=== PATIENT | male | born 1935 | race Caucasian/White ===

== ENCOUNTER 2017-05-31 10:15 | Inpatient (IN) | payer MEDICARE, OTHER ==
[~2017-05-31] VITALS: Ht 157.5 cm; Wt 61.1 kg
[~2017-05-31 10:15] MED LIST: AMLO5TAB22 PO; ARIC5TAB PO; JANT1TAB PO; LEXA20TA PO; LORA-474 PO; POTA10IN2 PO; RAMI5CAP36 PO; SIMV20 PO; TAMS0.4C67 PO; TRAZ50TA4 PO; ULTR50TA PO; [UNRECOGNIZED DRUG - CODE]
[2017-05-31 10:20] VITALS: BP 142/93; PULSE 81; RESP 18; TEMP 98.6; O2SAT 99
--- NOTE | 2017-05-31 10:54 | PD ---
HPI Chief Complaint: Fall Time Seen by Provider: 10:46 Travel History International Travel<30 days: No Contact w/Intl Traveler<30days: No Traveled to known affect area: No History of Present Illness HPI Patient is a 82-year-old male presents emergency department from [facility] after a fall out of a wheelchair. He arrives with his and they're niece, his states that he is on hospice for a history of coronary artery disease, incident happened just prior to arrival. Patient has no complaints at this time. Has a small abrasion to left forehead as well as left elbow. PFSH Past Medical History Hx Anticoagulant Therapy: Yes (81 MG ASA; COUMADIN) Alzheimer's Disease: Yes Arthritis: Yes Asthma: No Autoimmune Disease: No Blood Disorders: No Anxiety: No Depression: Yes Heart Rhythm Problems: Yes (AICD) Cancer: No Cardiac Catheterization: Yes Cardiovascular Problems: Yes (BYPASS; STENTS; PACEMAKER) High Cholesterol: Yes Chemotherapy: No Chest Pain: Yes Congestive Heart Failure: No COPD: No Cerebrovascular Accident: Yes (TIAS) Coronary Artery Disease: Yes Diabetes: No Diminished Hearing: No Endocrine: No Gastrointestinal Disorders: Yes GERD: No Glaucoma: No Genitourinary: No Headaches: No Hepatitis: No Hiatal Hernia: No Hypertension: Yes Immune Disorder: No Implanted Vascular Access Dvce: Yes Kidney Stones: No Musculoskeletal: No Neurologic: Yes (MX TIA) Psychiatric: No Reproductive: No Respiratory: No Migraines: No Myocardial Infarction: Yes Radiation Therapy: No Renal Failure: No Seizures: Yes (convulsive disorder) Sickle Cell Disease: No Sleep Apnea: No Thyroid Disease: No Ulcer: No PNEUMOCCOCAL Vaccine (Year): 1 Past Surgical History Abdominal Surgery: Yes (HERNIA REPAIR 15 YEARS OLD, APENDECTOMY AT 8 ) AICD: Yes (PACER/DEFIB.) Appendectomy: Yes Arteriovenous Shunt: No Body Medical Devices: ACD- [employer] Cardiac Surgery: Yes (AVR, 5 BYPASSES IN 2001, AORTIC COW ) Cholecystectomy: Yes Coronary Artery Bypass Graft: Yes (5 bypass) Coronary Stent: Yes Ear Surgery: No Endocrine Surgery: No Eye Surgery: No Genitourinary Surgery: No Gynecologic Surgery: No Insulin Pump: No Joint Replacement: No Neurologic Surgery: No Pacemaker: Yes ([employer]) Thoracic Surgery: No Other Surgery: Yes Social History Alcohol Use: No Tobacco Use: No (QUIT 45 YEARS AGO) Substance Use: No Allergies-Medications (Allergen,Severity, Reaction): Coded Allergies: MRI PRECAUTION (Verified Allergy, Severe, 05/31/17) PACEMAKER DISCONNECTED Reported Meds & Prescriptions Reported Meds & Active Scripts Active Reported Cresemba (Isavuconazonium Sulfate) 186 Mg Cap Trazodone Hcl (Trazodone HCl) 50 Mg Tab Unknown Dose PO HS Aricept (Donepezil HCl) 5 Mg Tab 10 Mg PO HS Lexapro (Escitalopram Oxalate) 20 Mg Tab 20 Mg PO BID Amlodipine Besylate 5 mg (Amlodipine Besylate) 5 Mg Tab 1 Tab PO DAILY Ramipril 5 mg (Ramipril) 5 Mg Cap 1 Cap PO BID Ativan (Lorazepam) 1 Mg Tab 1 Mg PO BID Ultram (Tramadol HCl) 50 Mg Tab 50 Mg PO Q6HR PRN Flomax (Tamsulosin HCl) 0.4 Mg Cap 0.4 Mg PO DAILY Jantoven 1 mg (Warfarin Sodium) Warfarin Sodium 1 mg Tab 5 Mg PO HS Potassium Chloride 10 Meq Cap 10 Meq PO DAILY Zocor (Simvastatin) 20 Mg Tab 40 Mg PO HS Review of Systems Except as stated in HPI: all other systems reviewed are Neg Physical Exam Narrative GENERAL: Well-developed well-nourished, chronically ill elderly appearing male in no distress. SKIN: Focused skin assessment warm/dry. Small abrasions to left elbow as well as left forehead. No stewart signs no raccoons eyes. HEAD: Atraumatic. Normocephalic. EYES: Pupils equal and round. No scleral icterus. No injection or drainage. ENT: No nasal bleeding or discharge. Mucous membranes pink and moist. NECK: Trachea midline. No JVD. CARDIOVASCULAR: Regular rate and rhythm. No murmur appreciated. RESPIRATORY: No accessory muscle use. Clear to auscultation. Breath sounds equal bilaterally. GASTROINTESTINAL: Abdomen soft, non-tender, nondistended. Hepatic and splenic margins not palpable. MUSCULOSKELETAL: No obvious deformities. No clubbing. No cyanosis. No edema. NEUROLOGICAL: Awake and alert. No obvious cranial nerve deficits. Motor grossly within normal limits. Normal speech. 5 out of 5 strength in all 4 extremities, sensation normal in all 4 extremities. PSYCHIATRIC: Appropriate mood and affect; insight and judgment normal. Data Data Last Documented VS Vital Signs Date Time Temp Pulse Resp B/P (MAP) Pulse Ox O2 Delivery O2 Flow Rate FiO2 05/31/17 10:37 96 18 99 Room Air 05/31/17 10:20 98.6 142/93 (109) Orders Orders Ct Brain W/O Iv Contrast(Rout) (05/31/17 ) Ct Cerv Spine W/O Contrast (05/31/17 ) Consult Neurosurgery (05/31/17 ) (Hub Use Only)Inp Phy Cons/Ref (05/31/17 ) Oxycodone-Acetamin 5-325 Mg (Percocet (05/31/17 13:45) [place] J Collar (05/31/17 ) Electrocardiogram (05/31/17 13:35) Basic Metabolic Panel (Bmp) (05/31/17 13:35) Complete Blood Count With Diff (05/31/17 13:35) Magnesium (Mg) (05/31/17 13:35) Prothrombin Time / Inr (Pt) (05/31/17 13:35) Act Partial Throm Time (Ptt) (05/31/17 13:35) Chest, Single Ap (05/31/17 13:35) Ecg Monitoring (05/31/17 13:35) Iv Access Insert/Monitor (05/31/17 13:35) Oximetry (05/31/17 13:35) Oxygen Administration (05/31/17 13:35) Sodium Chloride 0.9% Flush (Ns Flush) (05/31/17 13:45) Admit Order (Ed Use Only) (05/31/17 ) ^ Medication Reconciliation (05/31/17 14:00) MDM Medical Decision Making Medical Screen Exam Complete: Yes Emergency Medical Condition: Yes Differential Diagnosis Closed head injury, neck injury, fall, Narrative Course Patient roomed emergency department, appears well in no obvious distress, c- collar precautions were maintained. Patient underwent CAT scanning of his head and his neck the latter of which did show an acute C2 dens fracture. Is minimally superiorly displaced. Patient again is neurologically intact. Basic labs were ordered as part of preop workup. Patient was discussed with Dr. Wiley has seen the patient and I said and on discussion between him the patient and the family about surgical versus nonsurgical options. The time being patient will be admitted for neurologic checks. Patient was discussed with hospitalist for the admission to Diagnosis Primary Impression: C2 cervical fracture Admitting Information Admitting Physician Requests: Observation Condition: Stable Doni Leonard MD May 31, 2017 10:53
--- NOTE | 2017-05-31 12:10 | RADRPT ---
EXAM DATE/TIME: 05/31/2017 11:36 [facility] COMPARISON: CT BRAIN W/O CONTRAST, April 30, 2016, 10:16. INDICATIONS : Trauma; fall. RADIATION DOSE: 56.35 CTDIvol (mGy) MEDICAL HISTORY : Cardiovascular disease. Hypertension. Seizures. SURGICAL HISTORY : CABG ENCOUNTER: Initial ACUITY: 1 day PAIN SCALE: 5/10 LOCATION: cranial TECHNIQUE: Multiple contiguous axial images were obtained of the head. Using automated exposure control and adj ustment of the mA and/or kV according to patient size, radiation dose was kept as low as reasonably a chievable to obtain optimal diagnostic quality images. DICOM format image data is available electro nically for review and comparison. FINDINGS: CEREBRUM: There is generalized cerebral atrophy. Ventricles are normal. There is periventricular white matter l ow attenuation. No evidence of midline shift, mass lesion, hemorrhage or acute infarction. No extra- axial fluid collections are seen. POSTERIOR FOSSA: The cerebellum and brainstem demonstrate no acute finding. The 4th ventricle is midline. The cerebe llopontine angle is unremarkable. EXTRACRANIAL: There is left frontal scalp soft tissue swelling/hematoma. SKULL: The calvaria is intact. No evidence of skull fracture. CONCLUSION: Left frontal scalp soft tissue swelling/hematoma. No associated fracture or acute intracranial abnorm ality is present. Javier Riley MD on May 31, 2017 at 12:07 Board Certified Radiologist. This report was verified electronically.
--- NOTE | 2017-05-31 12:15 | RADRPT ---
EXAM DATE/TIME: 05/31/2017 11:38 [facility] COMPARISON: No previous studies available for comparison. INDICATIONS : Trauma; fall RADIATION DOSE: 32.17 CTDIvol (mGy) MEDICAL HISTORY : Cardiovascular disease. Seizures. SURGICAL HISTORY : CABG ENCOUNTER: Initial ACUITY: 1 day PAIN SCALE: 6/10 LOCATION: Bilateral neck TECHNIQUE: Volumetric scanning of the cervical spine was performed. Multiplanar reconstructions in the sagittal, coronal and oblique axial planes were performed. Using automated exposure control and adjustment o f the mA and/or kV according to patient size, radiation dose was kept as low as reasonably achievable to obtain optimal diagnostic quality images. DICOM format image data is available electronically f or review and comparison. FINDINGS: There is 3 mm of anterolisthesis of C4 on C5 and 4 mm range listhesis of C5 on C6. The bones are unde rmineralized. A fracture is present through the base of the odontoid process with 2 mm of separation of the fracture fragments. The fracture does not appear to extend clearly through the posterior trixie x. There is decreased disc height at C5-C6 and C6-C7. Facet arthrosis is present at multiple levels. The visualized portions of the posterior fossa, paraspinous soft tissues, and upper lung zones demons trate no acute abnormality. CONCLUSION: 1. There is a minimally displaced fracture through the base of the odontoid process at C2. Fracture e nds are by approximately 2 mm anteriorly and the fracture does not clearly extend through t he posterior cortex. 2. There is grade one anterolisthesis of C4 on C5 and C5 on C6 with multilevel degenerative disc dise ase. Javier Riley MD on May 31, 2017 at 12:09 Board Certified Radiologist. This report was verified electronically.
[2017-05-31] MEDS ORDERED: SODIUM CHLORIDE 0.9% FLUSH 10 ML FLUSH IVF PRN (13:45)
[2017-05-31] MEDS ORDERED: oxyCODONE/ACETAMINOPHEN 5 MG/325 MG TAB PO ONE (13:45)
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
[2017-05-31] MEDS ORDERED: SENNOSIDES 8.6 MG TAB PO PRN (14:15)
[2017-05-31] MEDS ORDERED: NALOXONE HCL 0.4 MG/ML AMP IV PRN (14:15)
[2017-05-31] MEDS ORDERED: MAGNESIUM HYDROXIDE SUSP 30 ML CUP PO PRN (14:15)
[2017-05-31] MEDS ORDERED: BISACODYL 10 MG SUPP RECTAL PRN (14:15)
[2017-05-31] MEDS ORDERED: SODIUM CHLORIDE 0.9% FLUSH 10 ML FLUSH IV FLUSH PRN (14:15)
[2017-05-31] MEDS ORDERED: LACTULOSE SYRUP 20 GM/30 ML CUP PO PRN (14:15)
[2017-05-31] MEDS ORDERED: ONDANSETRON HCL 4 MG/2 ML VIAL IVP PRN (14:15)
[2017-05-31 14:34] VITALS: BP 159/93; PULSE 90; RESP 18; TEMP 98.3; O2SAT 100
--- NOTE | 2017-05-31 14:45 | RADRPT ---
EXAM DATE/TIME: 05/31/2017 14:01 [facility] COMPARISON: CHEST SINGLE AP, April 30, 2016, 10:32. INDICATIONS : Fell today. Chest pain. MEDICAL HISTORY : Dementia. SURGICAL HISTORY : Aortic valve replacement. ENCOUNTER: Initial ACUITY: 1 day PAIN SCORE: Non-responsive. LOCATION: Bilateral chest FINDINGS: Single AP view of the chest. Cardiac pacemaker again noted. Prosthetic cardiac valve again seen. Pers istent patchy opacity at the left lung base indicating scarring versus chronic lung disease. Mild per ipheral interstitial opacity noted in the right lung. No evidence of pleural effusion or pneumothorax . CONCLUSION: Chronic lung disease. Left greater than right. No acute findings. Augie Hamilton MD on May 31, 2017 at 14:42 Board Certified Radiologist. This report was verified electronically.
[2017-05-31 14:53] LABS: AUTOMATED NEUTROPHIL # 7.3 TH/MM3 (1.8-7.7); BASOPHIL # 0.1 TH/MM3 (0-0.2); BASOPHIL % 0.9 % (0.0-2.0); EOSINOPHIL # 0.1 TH/MM3 (0-0.4); EOSINOPHIL % 0.7 % (0.0-4.0); HEMATOCRIT 38.6 % (39.0-51.0); HEMO FLAGS DIFF FINAL; LYMPH % 14.6 % (9.0-44.0); LYMPHOCYTE # 1.4 TH/MM3 (1.0-4.8); MEAN CELL VOLUME 89.5 FL (80.0-100.0); MEAN CORPUSCULAR HEMOGLOBIN 30.3 PG (27.0-34.0); MEAN CORPUSCULAR HGB CONC 33.8 % (32.0-36.0); MONO % 5.2 % (0.0-8.0); NEUT % 78.6 % (16.0-70.0); PLATELET COUNT 189 TH/MM3 (150-450); RED BLOOD COUNT 4.31 MIL/MM3 (4.50-5.90); RED CELL DISTRIBUTION WIDTH 14.8 % (11.6-17.2); WHITE BLOOD COUNT 9.3 TH/MM3 (4.0-11.0)
[2017-05-31] MEDS: SODIUM CHLOR 0.9% 1000 ML INJ 1,000 ML IV SCH ×4 (14:56→23:38)
[2017-05-31 15:07] LABS: BICARBONATE 30.3 MEQ/L (21.0-32.0); MAGNESIUM 2.1 MG/DL (1.5-2.5); POTASSIUM 3.2 MEQ/L (3.5-5.1)
[2017-05-31 15:10] LABS: APTT (PATIENT) 30.8 SEC (24.3-30.1); PROTHROMBIN TIME - PATIENT 11.1 SEC (9.8-11.6)
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
[2017-05-31 17:00] VITALS: BP 151/63; PULSE 105; RESP 18; TEMP 97.9; O2SAT 100
[2017-05-31] MEDS ORDERED: POTASSIUM CHLOR 20 MEQ PREMIX 100 ML IV ONE (18:30)
[2017-05-31] MEDS ORDERED: POTASSIUM CHLORIDE 10 MEQ CONTROLLED RELEASE TAB PO ONE (18:30)
[2017-05-31 19:00] VITALS: BP 158/99; PULSE 91; RESP 20; TEMP 97.5; O2SAT 99
[2017-05-31] MEDS ORDERED: WARFARIN SOD 2.5 MG TAB PO SCH (20:00)
[2017-05-31] MEDS ORDERED: WARFARIN SOD 1 MG TAB PO SCH (21:00)
[2017-05-31] MEDS ORDERED: DONEPEZIL HCL 5 MG TAB PO SCH (21:00)
[2017-05-31] MEDS ORDERED: SIMVASTATIN PO SCH (21:00)
[2017-05-31] MEDS ORDERED: PRAVASTATIN SOD 80 MG TAB PO SCH (21:00)
[2017-05-31] MEDS: RAMIPRIL 5 MG CAP PO SCH (23:36)
[2017-05-31] MEDS: SODIUM CHLORIDE 0.9% FLUSH 10 ML FLUSH IV FLUSH SCH (23:36)
[2017-05-31] MEDS: LORazepam 1 MG TAB PO SCH (23:37)
[2017-05-31] MEDS: DOCUSATE SODIUM 50 MG/SENNA 8.6 MG TAB PO SCH (23:37)
[2017-05-31] MEDS: ESCITALOPRAM OXALATE 20 MG TAB PO SCH (23:37)
[2017-06-01] VITALS (7 sets, daily range): BP systolic 114–184; BP diastolic 67–114; PULSE 72–110; RESP 18–20; TEMP 97.2–98.2; O2SAT 95–100
[2017-06-01] MEDS: traMADol HCL 50 MG TAB PO PRN ×3 (06:49→17:57)
[2017-06-01] MEDS: POTASSIUM CHLORIDE 10 MEQ CONTROLLED RELEASE TAB PO SCH ×2 (09:00→09:11)
[2017-06-01] MEDS ORDERED: TAMSULOSIN HCL 0.4 MG CAP PO SCH (09:00)
[2017-06-01] MEDS: DOCUSATE SODIUM 50 MG/SENNA 8.6 MG TAB PO SCH ×2 (09:00→20:18)
[2017-06-01] MEDS ORDERED: amLODIPine BESYLATE 5 MG TAB PO SCH (09:00)
[2017-06-01] MEDS: ESCITALOPRAM OXALATE 20 MG TAB PO SCH (09:10)
[2017-06-01] MEDS: LORazepam 1 MG TAB PO SCH ×3 (09:10→20:17)
[2017-06-01] MEDS: RAMIPRIL 5 MG CAP PO SCH (09:10)
--- NOTE | 2017-06-01 09:31 | EKG ---
Date Performed: 05/31/2017 Time Performed: 14:23:19 PTAGE: 82 years EKG: ELECTRONIC VENTRICULAR PACEMAKER Compared to prior tracing no significant change ABNORMAL R HYTHM ECG PREVIOUS TRACING : 04/30/2016 10.09 DOCTOR: Sean Yancey Interpretating Date/Time 06/01/2017 09:29:57
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
[2017-06-01 12:18] LABS: PROTHROMBIN TIME - PATIENT 11.4 SEC (9.8-11.6)
[2017-06-01 12:39] LABS: ALKALINE PHOSPHATASE 81 U/L (45-117); ALT (GPT) 12 U/L (12-78); ANION GAP 13 MEQ/L (5-15); AST (GOT) 18 U/L (15-37); BLOOD UREA NITROGEN 9 MG/DL (7-18); CHLORIDE 102 MEQ/L (98-107); GLOMERULAR FILTRATION RATE 107 ML/MIN (>89); SODIUM (NA) 140 MEQ/L (136-145); TOTAL BILIRUBIN ADULT 0.8 MG/DL (0.2-1.0)
[2017-06-01 13:12] LABS: POTASSIUM 2.7 MEQ/L (3.5-5.1)
[2017-06-01] MEDS: SODIUM CHLORIDE 0.9% FLUSH 10 ML FLUSH IV FLUSH SCH ×2 (14:00→20:17)
[2017-06-01] MEDS ORDERED: WARFARIN SOD 5 MG TAB PO SCH (16:00)
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
[2017-06-01] MEDS: POTASSIUM CHLOR 20 MEQ PREMIX 100 ML IV SCH ×2 (17:57→20:29)
[2017-06-01] MEDS: ENALAPRILAT 2.5 MG/2 ML VIAL IV PUSH PRN ×2 (17:58→21:18)
[2017-06-01] MEDS: METHADONE HCL 10 MG TAB PO SCH (20:18)
[2017-06-02 00:40] VITALS: BP 188/112; PULSE 92; RESP 18; TEMP 97.9; O2SAT 98
[2017-06-02 04:35] VITALS: BP 167/103; PULSE 87; RESP 17; TEMP 98; O2SAT 99
[2017-06-02] MEDS: SODIUM CHLOR 0.9% 1000 ML INJ 1,000 ML IV SCH ×2 (07:00→17:00)
[2017-06-02 08:10] VITALS: BP 142/89; PULSE 84; RESP 18; TEMP 97.4; O2SAT 97
[2017-06-02 08:40] LABS: PROTHROMBIN TIME - PATIENT 10.9 SEC (9.8-11.6)
[2017-06-02] MEDS: POTASSIUM CHLORIDE 10 MEQ CONTROLLED RELEASE TAB PO SCH (08:51)
[2017-06-02] MEDS: QUEtiapine FUMARATE 25 MG TAB PO SCH (08:51)
[2017-06-02] MEDS: LORazepam 1 MG TAB PO SCH ×2 (08:51→21:00)
[2017-06-02] MEDS: DOCUSATE SODIUM 50 MG/SENNA 8.6 MG TAB PO SCH ×2 (09:00→21:00)
[2017-06-02] MEDS: SODIUM CHLORIDE 0.9% FLUSH 10 ML FLUSH IV FLUSH SCH ×2 (09:00→21:00)
[2017-06-02 10:54] LABS: C. DIFF EPI 027 PRESUMPTIVE NEGATIVE (NEGATIVE)
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
[2017-06-02 11:52] VITALS: BP 168/107; PULSE 83; RESP 18; TEMP 97.5; O2SAT 99
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
--- NOTE | 2017-06-02 14:10 | HHI.HCPN ---
Palliative care was consulted. It appears the family has elected hospice services upon DC. Palliative care will be available, please call if our services are needed. Thank you. . Evy Ball Jun 02, 2017 14:10
[2017-06-02 16:00] VITALS: BP 166/93; PULSE 93; RESP 16; TEMP 97.9; O2SAT 97
[2017-06-02] MEDS ORDERED: POTASSIUM CHLORIDE 25 MEQ EFFERVESCENT TAB PO ONE (16:15)
[2017-06-02] MEDS: ENALAPRILAT 2.5 MG/2 ML VIAL IV PUSH PRN (17:21)
[2017-06-02 19:22] LABS: BICARBONATE 25.8 MEQ/L (21.0-32.0); POTASSIUM 3.3 MEQ/L (3.5-5.1)
[2017-06-02 20:00] VITALS: BP 173/102; PULSE 87; RESP 18; TEMP 98.2; O2SAT 93
[2017-06-02] MEDS: METHADONE HCL 10 MG TAB PO SCH (21:00)
[2017-06-03] VITALS (9 sets, daily range): BP systolic 123–210; BP diastolic 72–110; PULSE 78–96; RESP 18–20; TEMP 97–98.1; O2SAT 94–99
[2017-06-03] MEDS: SODIUM CHLOR 0.9% 1000 ML INJ 1,000 ML IV SCH ×3 (06:03→14:35)
[2017-06-03] MEDS: SODIUM CHLORIDE 0.9% FLUSH 10 ML FLUSH IV FLUSH SCH ×2 (08:40→21:00)
[2017-06-03] MEDS: LORazepam 1 MG TAB PO SCH ×2 (08:40→21:48)
[2017-06-03] MEDS: DOCUSATE SODIUM 50 MG/SENNA 8.6 MG TAB PO SCH ×2 (08:41→21:48)
[2017-06-03] MEDS: POTASSIUM CHLORIDE 10 MEQ CONTROLLED RELEASE TAB PO SCH (08:41)
[2017-06-03] MEDS: QUEtiapine FUMARATE 25 MG TAB PO SCH (08:41)
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
[2017-06-03 13:06] LABS: INTERNATIONAL NORMALIZED RATIO 1.2 RATIO; PROTHROMBIN TIME - PATIENT 13.6 SEC (9.8-11.6)
[2017-06-03] MEDS: traMADol HCL 50 MG TAB PO PRN (14:34)
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
[2017-06-03] MEDS: ENALAPRILAT 2.5 MG/2 ML VIAL IV PUSH PRN (17:03)
[2017-06-03] MEDS: METHADONE HCL 10 MG TAB PO SCH (21:49)
[2017-06-03 22:09] LABS: AUTOMATED NEUTROPHIL # 7.6 TH/MM3 (1.8-7.7); BASOPHIL % 0.5 % (0.0-2.0); EOSINOPHIL # 0.2 TH/MM3 (0-0.4); EOSINOPHIL % 1.6 % (0.0-4.0); HEMATOCRIT 37.7 % (39.0-51.0); HEMO FLAGS DIFF FINAL; LYMPH % 15.4 % (9.0-44.0); LYMPHOCYTE # 1.5 TH/MM3 (1.0-4.8); MEAN CELL VOLUME 89.8 FL (80.0-100.0); MEAN CORPUSCULAR HEMOGLOBIN 29.7 PG (27.0-34.0); MEAN CORPUSCULAR HGB CONC 33.1 % (32.0-36.0); MONO % 6.9 % (0.0-8.0); NEUT % 75.6 % (16.0-70.0); PLATELET COUNT 200 TH/MM3 (150-450); RED CELL DISTRIBUTION WIDTH 14.7 % (11.6-17.2); WHITE BLOOD COUNT 10.1 TH/MM3 (4.0-11.0)
[2017-06-03 22:21] LABS: BICARBONATE 27.9 MEQ/L (21.0-32.0)
[2017-06-04] MEDS: ENALAPRILAT 2.5 MG/2 ML VIAL IV PUSH PRN (00:38)
[2017-06-04] MEDS: SODIUM CHLOR 0.9% 1000 ML INJ 1,000 ML IV SCH ×3 (02:00→18:07)
[2017-06-04 04:36] VITALS: BP 142/85; PULSE 81; RESP 18; TEMP 97.3; O2SAT 96
[2017-06-04 08:12] VITALS: O2SAT 92
[2017-06-04] MEDS: SODIUM CHLORIDE 0.9% FLUSH 10 ML FLUSH IV FLUSH SCH ×2 (09:00→21:00)
[2017-06-04] MEDS: QUEtiapine FUMARATE 25 MG TAB PO SCH (09:29)
[2017-06-04] MEDS: POTASSIUM CHLORIDE 10 MEQ CONTROLLED RELEASE TAB PO SCH (09:29)
[2017-06-04] MEDS: DOCUSATE SODIUM 50 MG/SENNA 8.6 MG TAB PO SCH ×2 (09:30→21:36)
[2017-06-04] MEDS: LORazepam 1 MG TAB PO SCH ×2 (09:30→21:36)
[2017-06-04 09:57] VITALS: BP 136/86; PULSE 84; RESP 17; TEMP 97.4; O2SAT 97
[2017-06-04 13:07] VITALS: BP 128/79; PULSE 87; RESP 16; TEMP 97.4; O2SAT 97
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
[2017-06-04 17:08] VITALS: BP 145/89; PULSE 80; RESP 16; TEMP 97.5; O2SAT 96
[2017-06-04 20:30] VITALS: BP 153/87; PULSE 88; RESP 18; TEMP 97.2; O2SAT 100
[2017-06-04] MEDS: METHADONE HCL 10 MG TAB PO SCH (21:36)
[2017-06-05] VITALS (8 sets, daily range): BP systolic 159–178; BP diastolic 88–104; PULSE 78–82; RESP 16–20; TEMP 97.4–99; O2SAT 95–100
[2017-06-05] MEDS ORDERED: LACTATED RINGER'S 1000 ML IV PRN (05:30)
[2017-06-05] MEDS ORDERED: CHLORHEXIDINE GLUCONATE 2 % 1 PACK (2 CLOTHS) TOPICAL PRN (05:30)
[2017-06-05] MEDS ORDERED: POVIDONE IODINE 5% (ANTISEPSIS KIT) 4 APPLICATIONS EACH NARE PRN (05:30)
[2017-06-05] MEDS ORDERED: SODIUM CHLORID 0.9% 500 ML IV PRN (05:30)
[2017-06-05] MEDS ORDERED: INSULIN HUMAN REGULAR 1,000 UNITS/10 ML VIAL SQ PRN (05:30)
[2017-06-05] MEDS ORDERED: METOPROLOL TARTRATE 25 MG TAB PO PRN (05:30)
[2017-06-05] MEDS: QUEtiapine FUMARATE 25 MG TAB PO SCH (09:00)
[2017-06-05] MEDS: POTASSIUM CHLORIDE 10 MEQ CONTROLLED RELEASE TAB PO SCH (09:00)
[2017-06-05] MEDS: DOCUSATE SODIUM 50 MG/SENNA 8.6 MG TAB PO SCH (09:00)
[2017-06-05] MEDS: SODIUM CHLORIDE 0.9% FLUSH 10 ML FLUSH IV FLUSH SCH (09:00)
[2017-06-05] MEDS: LORazepam 1 MG TAB PO SCH (09:00)
[2017-06-05] MEDS: ENALAPRILAT 2.5 MG/2 ML VIAL IV PUSH PRN (10:32)
[2017-06-05] MEDS ORDERED: DEXAMETHASONE SOD PHOS 4 MG/ML VIAL IV ONE (10:51)
[2017-06-05] MEDS ORDERED: PHENYLEPH/NS 1000 MCG/10 ML SYR IV ONE (10:51)
[2017-06-05] MEDS ORDERED: PROPOFOL 200 MG/20 ML AMP IV ONE (10:51)
[2017-06-05] MEDS ORDERED: MIDAZOLAM HCL 2 MG/2 ML VIAL IV ONE (10:51)
[2017-06-05] MEDS ORDERED: ONDANSETRON HCL 4 MG/2 ML VIAL IV PUSH ONE (10:51)
[2017-06-05] MEDS ORDERED: LIDOCAINE HCL 1% PF 5 ML AMPULE OTHER ONE (10:51)
[2017-06-05] MEDS ORDERED: LACTATED RINGER'S 1000 ML INJ 2,000 ML IV ONE (10:51)
[2017-06-05 11:55] LABS: PROTHROMBIN TIME - PATIENT 11.5 SEC (9.8-11.6)
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
[2017-06-05] MEDS ORDERED: LIDOCAINE 2%/EPINEPHrine PF 1:200,000 20ML SDV ONE (16:14)
[2017-06-05] MEDS ORDERED: GELFOAM SIZE 100 ONE (16:14)
[2017-06-05] MEDS ORDERED: GENTAMICIN SULFATE 80 MG/2 ML VIAL ONE (16:14)
[2017-06-05] MEDS ORDERED: THROMBIN (TOPICAL) 5,000 UNIT VIAL ONE (16:14)
[2017-06-05] MEDS ORDERED: ACETAMINOPHEN 1000 MG/100 ML 100 ML IV ONE (18:58)
[2017-06-05] MEDS ORDERED: ceFAZolin 2 GM PREMIX 50 ML ONE (19:45)
--- NOTE | 2017-06-05 22:46 | RADRPT ---
EXAM DATE/TIME: 06/05/2017 22:10 [facility] COMPARISON: CT CERVICAL SPINE W/O CONTRAST, May 31, 2017, 11:38. INDICATIONS : C2 odontoid screw placement. MEDICAL HISTORY : Dementia. SURGICAL HISTORY : Aortic valve replacement. ENCOUNTER: Initial ACUITY: 1 day PAIN SCORE: Non-responsive. LOCATION: c-spine FINDINGS: Anterior and lateral views in the operating room show placement of a screw across the odontoid fractu re. Alignment appears near-anatomic. No acute complication demonstrated. CONCLUSION: Screw fixation of odontoid fracture without evidence of an acute complication. Javier Machado MD on June 05, 2017 at 22:44 Board Certified Radiologist. This report was verified electronically.
[2017-06-05] MEDS ORDERED: DO NOT ADM ANY ANTICOAGULANT DRUGS PRN (23:00)
--- NOTE | 2017-06-05 23:23 | PD.OP ---
Operative Report Date of Surgery: Jun 05, 2017 Preoperative Diagnosis: (1) C2 cervical fracture C2-odontoid fracture Postoperative Diagnosis: (1) C2 cervical fracture C2-odontoid fracture Procedure: C2-odontoid screw placement for C2 Type II fracture fixation. Use of biplanar fluoroscopy intraoperative imaging for screw placement. Anesthesia: General Surgeon: Kade Wiley Manager Database(s): Hoang Luther Operation and Findings: Procedure in detail: The patient was brought into the operating room and positioned in supine position on the 3080 table with the head and neck in neutral position. Childs catheter was placed. Lines were established by Anesthesia. The patient was maintained in the cervical collar during positioning. Gen. endotracheal anesthesia was induced without difficulty, taking care not to significantly flex or extend the patient's neck during intubation and positioning. Leads for intraoperative neuro monitoring were placed and a baseline study obtained. All extremities were appropriately padded. The head was placed in the Hernandez 3 point fixation device. With the undersigned maintaining control of the head and neck, the neck was placed in a mildly extended position and secured with the Hernandez adapter to the operating room table using intraoperative fluoroscopy and lateral C-arm imaging during the positioning to ensure that the odontoid fracture remained in reduced position. The neck and upper chest were shaved with clippers and sterilely prepped and draped. Appropriate timeout procedure was performed with all personnel present and in agreement 1% Xylocaine with epinephrine was used for local infiltration over the incision site which was made transversely at the right C4-5 level and carried sharply down through the platysma muscle. The exposure was continued medial to the sternocleidomastoid muscle and carotid artery, and lateral to the trachea and esophagus. The prevertebral fascia was elevated away from the anterior longitudinal ligament with a Kitner sponge. The longus coli muscle on each side was elevated with the [place] elevator. The self-retaining retractor was placed with the blades beneath the longus coli muscle on each side. The hand-held cervical retractor blade was advanced up to the anterior border of the C2 vertebral body . The AP and lateral C-arm imaging was used to dock the drill guide at the anterior C2-C3 disc space in the midline. The guidewire was advanced into the anterior inferior C2 vertebral body The cannulated reamer was utilized to remove a small portion of the anterior superior central C3 vertebral body This allowed proper trajectory for a guidewire to be placed starting at the anterior inferior C2 vertebral body and advanced to the odontoid screw fracture site in the midline. The cannulated drill and then the cannulated tap were used to prepare the screw site. The 36 mm cannulated lag screw was then placed across the C2 fracture site in the midline and tightly secured. There appeared to be good reduction of the fracture Guidewire was then removed The entire construct was checked with intraoperative C-arm and felt to be satisfactory. The 10 [place] drain was brought out through a small incision in the left lower neck and secured to the skin with nylon suture and attached to sterile suction. The closure was performed with 3-0 Vicryl running for the platysma and interrupted for the subcutaneous closure, with 4-0 Vicryl running for the subcuticular closure. A dressing of sterile Mastisol, Steri-Strips, and Primapore dressing was placed. The patient was placed into a cervical collar, and taken to recovery room in stable condition. All counts were correct at the end of the case. Estimated blood loss was 100 cc No specimen was sent to pathology. Intraoperative neuro monitoring remained stable during the procedure. Kade Wiley MD Jun 05, 2017 23:22
[2017-06-06] VITALS (15 sets, daily range): BP systolic 85–187; BP diastolic 56–92; PULSE 80–84; RESP 12–18; TEMP 96–97.9; O2SAT 98–100
[2017-06-06] MEDS ORDERED: 1/2 NS + KCL 20 MEQ INJ 1,000 ML ONE (00:03)
[2017-06-06] MEDS ORDERED: ROCURONIUM INJ 50 MG/5 ML VIAL ONE (00:15)
[2017-06-06] MEDS ORDERED: PROPOFOL 1000 MG/100 ML INJ 100 ML ONE ×2 (00:15→01:37)
[2017-06-06] MEDS ORDERED: PHENYLEPHRINE HCL 10 MG/ML VIAL ONE ×2 (00:25→00:27)
[2017-06-06] MEDS ORDERED: LACTATED RINGER'S 1000 ML INJ 1,000 ML IV SCH (00:45)
[2017-06-06] MEDS ORDERED: ROCURONIUM INJ 100 MG/10 ML VIAL IV SCH (01:00)
[2017-06-06] MEDS ORDERED: PHENYLEPHRINE HCL 10 MG/ML VIAL IV SCH (01:00)
[2017-06-06] MEDS ORDERED: PHENYLEPHRINE 40 MG in D5W 500 ML IV PRN (01:00)
[2017-06-06] MEDS: PROPOFOL 1000 MG/100 ML INJ 100 ML IV PRN ×3 (02:00→22:17)
[2017-06-06] MEDS ORDERED: POTASSIUM CHLORIDE 25 MEQ EFFERVESCENT TAB PO PRN (03:45)
[2017-06-06] MEDS ORDERED: POTASSIUM PHOSPHATE INJ 30 MMOL in SODIUM CHLOR 0.9% 250 ML INJ 250 ML IV PRN (03:45)
[2017-06-06] MEDS ORDERED: SODIUM CHLORIDE 0.9% FLUSH 10 ML FLUSH IV FLUSH PRN (03:45)
[2017-06-06] MEDS ORDERED: MISCELLANEOUS NURSING INFORMATION XX SCH (03:45)
[2017-06-06] MEDS ORDERED: POTASSIUM PHOSPHATE MONOBASIC 500 MG TAB PO PRN (03:45)
[2017-06-06] MEDS ORDERED: RESP: ALBUTEROL 2.5 MG/3 ML NEB (PRN) INH (03:45)
[2017-06-06] MEDS ORDERED: POTASSIUM CHLOR 20 MEQ PREMIX 100 ML IV PRN (03:45)
[2017-06-06] MEDS ORDERED: MAGNESIUM OXIDE 400 MG TAB PO PRN (03:45)
[2017-06-06] MEDS ORDERED: POTASSIUM CHLOR 40 MEQ PREMIX 100 ML IV PRN ×2 (03:45)
[2017-06-06] MEDS ORDERED: MAGNESIUM SULFATE INJ 4 GM in SODIUM CHLORIDE 0.9% INJ 92 ML IV PRN (03:45)
[2017-06-06] MEDS ORDERED: CHLORHEXIDINE GLUCONATE 2 % 1 PACK (2 CLOTHS) TOP PRN (03:45)
[2017-06-06] MEDS ORDERED: SODIUM PHOSPHATE INJ 30 MMOL in SODIUM CHLOR 0.9% 250 ML INJ 240 ML IV PRN (03:45)
[2017-06-06] MEDS ORDERED: SENNOSIDES 8.6 MG TAB PO PRN (03:45)
[2017-06-06] MEDS ORDERED: MAGNESIUM SULFATE INJ 2 GM in SODIUM CHLORIDE 0.9% INJ 96 ML IV PRN (03:45)
[2017-06-06] MEDS ORDERED: BISACODYL 10 MG SUPP RECTAL PRN (03:45)
[2017-06-06] MEDS ORDERED: ONDANSETRON HCL 4 MG/2 ML VIAL IV PUSH PRN (03:45)
[2017-06-06] MEDS ORDERED: POTASSIUM PHOSPHATE MONOBASIC 500 MG TAB PO/TUBE PRN (03:45)
[2017-06-06] MEDS ORDERED: MAGNESIUM HYDROXIDE SUSP 30 ML CUP PO PRN (03:45)
[2017-06-06] MEDS ORDERED: LACTULOSE SYRUP 20 GM/30 ML CUP PO PRN (03:45)
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
[2017-06-06 03:54] LABS: BLOOD GAS BASE EXCESS -3.3 mmol/L (-2-2); BLOOD GAS HCO3 25 mmol/L (22-26); BLOOD GAS METHEMOGLOBIN 1.3 % (0-2); BLOOD GAS O2 HGB SATURATION 97 % (90-100); BLOOD GAS OXYGEN CONTENT 16.8 Vol % (12.0-20.0); BLOOD GAS PCO2 77 mmHg (38-42); BLOOD GAS PO2 258 mmHg (61-120); BLOOD GAS TOTAL HGB 11.9 G/DL (12.0-16.0); TEMP CORR TO 98.6
[2017-06-06 03:55] LABS: CRITICAL VALUE YES; DRAW SITE ALINE; FIO2 60 %; LITER FLOW 8 L/M; OXYGEN DEVICE SM; STAT YES
[2017-06-06] MEDS: CHLORHEXIDINE GLUCONATE 2 % 1 PACK (2 CLOTHS) TOP SCH ×2 (04:00→21:12)
[2017-06-06] MEDS ORDERED: TERBUTALINE INJ 1 MG/ML AMP SQ PRN (04:45)
[2017-06-06 04:59] LABS: BASOPHIL # 0.1 TH/MM3 (0-0.2); BASOPHIL % 0.5 % (0.0-2.0); EOSINOPHIL # 0.1 TH/MM3 (0-0.4); EOSINOPHIL % 0.6 % (0.0-4.0); HEMATOCRIT 35.7 % (39.0-51.0); HEMO FLAGS DIFF FINAL; LYMPH % 13.3 % (9.0-44.0); LYMPHOCYTE # 1.4 TH/MM3 (1.0-4.8); MEAN CELL VOLUME 90.6 FL (80.0-100.0); MEAN CORPUSCULAR HEMOGLOBIN 29.9 PG (27.0-34.0); MONO % 1.7 % (0.0-8.0); NEUT % 83.9 % (16.0-70.0); PLATELET COUNT 252 TH/MM3 (150-450); RED BLOOD COUNT 3.94 MIL/MM3 (4.50-5.90); RED CELL DISTRIBUTION WIDTH 14.7 % (11.6-17.2); WHITE BLOOD COUNT 10.7 TH/MM3 (4.0-11.0)
[2017-06-06] MEDS: RESP: ALBUTEROL 2.5 MG/IPRATROPIUM 0.5 MG NEB (SCH) INH ×4 (05:00→22:23)
[2017-06-06 05:03] LABS: MEAN CELL VOLUME 88.4 FL (80.0-100.0); MEAN CORPUSCULAR HEMOGLOBIN 30.3 PG (27.0-34.0); MEAN CORPUSCULAR HGB CONC 34.3 % (32.0-36.0); PLATELET COUNT 183 TH/MM3 (150-450); RED BLOOD COUNT 3.62 MIL/MM3 (4.50-5.90); RED CELL DISTRIBUTION WIDTH 14.7 % (11.6-17.2); REVIEW FLAG FINAL; WHITE BLOOD COUNT 8.5 TH/MM3 (4.0-11.0)
[2017-06-06] MEDS: fentaNYL DRIP 250 ML IV PRN (05:15)
--- NOTE | 2017-06-06 05:31 | RADRPT ---
EXAM DATE/TIME: 06/06/2017 04:21 [facility] COMPARISON: CT BRAIN W/O CONTRAST, May 31, 2017, 11:36. INDICATIONS : Altered mental status. RADIATION DOSE: 36.64 CTDIvol (mGy) MEDICAL HISTORY : Non-responsive. SURGICAL HISTORY : Non-responsive. ENCOUNTER: Subsequent ACUITY: 4 - 6 days PAIN SCALE: Non-responsive LOCATION: cranial TECHNIQUE: Multiple contiguous axial images were obtained of the head. Using automated exposure control and adj ustment of the mA and/or kV according to patient size, radiation dose was kept as low as reasonably a chievable to obtain optimal diagnostic quality images. DICOM format image data is available electro nically for review and comparison. FINDINGS: CEREBRUM: The ventricles are normal for age. Symmetric cortical atrophy with periventricular small vessel isch emic demyelination. No evidence of midline shift, mass lesion, hemorrhage or acute infarction. Old w david matter infarct versus prominent sulci in the left occiput. No extra-axial fluid collections are seen. POSTERIOR FOSSA: Symmetric and stable cerebellar atrophy. The 4th ventricle is midline. The cerebellopontine angle i s unremarkable. EXTRACRANIAL: The visualized portion of the orbits is intact. SKULL: The calvaria is intact. No evidence of skull fracture. CONCLUSION: 1. Stable cerebellar and cerebral atrophy with periventricular small vessel ischemic demyelination. 2. 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 3. Nothing acute. Sebastián Chin MD on June 06, 2017 at 5:26 Board Certified Radiologist. This report was verified electronically.
[2017-06-06 06:13] LABS: MAGNESIUM 1.6 MG/DL (1.5-2.5); POTASSIUM 3.2 MEQ/L (3.5-5.1)
[2017-06-06 06:50] LABS: BICARBONATE 26.8 MEQ/L (21.0-32.0); POTASSIUM 3.1 MEQ/L (3.5-5.1)
[2017-06-06] MEDS: CHLORHEXIDINE 0.12% (ORAL KIT) 15 ML CUP MT SCH ×2 (08:00→20:00)
[2017-06-06] MEDS: FAMOTIDINE 20 MG/2 ML VIAL IV PUSH SCH ×2 (08:51→21:11)
[2017-06-06] MEDS: SODIUM CHLORIDE 0.9% FLUSH 10 ML FLUSH IV FLUSH SCH ×2 (08:52→21:12)
[2017-06-06] MEDS: FAMOTIDINE 40 MG/5 ML LIQ 50 ML BTL NG SCH ×2 (08:52→21:00)
--- NOTE | 2017-06-06 09:08 | RADRPT ---
EXAM DATE/TIME: 06/06/2017 00:44 [facility] COMPARISON: CHEST SINGLE AP, May 31, 2017, 14:01. INDICATIONS : Post Intubation MEDICAL HISTORY : Dementia SURGICAL HISTORY : Aortic valve replacement ENCOUNTER: Initial ACUITY: 1 day PAIN SCORE: Non-responsive. LOCATION: Bilateral chest FINDINGS: A single view of the chest demonstrates chronic appearing interstitial changes in both hemithoraces p redominantly peripherally and in the left base. A superimposed acute infiltrate. Heart size is normal with findings of prior aortic valve replacement. Endotracheal tube is identified with the tip above the patrick. Left subclavian bipolar pacer/defibrillator is radiographically intact. CONCLUSION: 1. Stable chronic interstitial changes most prominent in the periphery and left base. 2. No superimposed acute infiltrate. 3. Stable postsurgical changes with left subclavian bipolar pacer/defibrillator and aortic valve repl acement. Sebastián Chin MD on June 06, 2017 at 1:14 Board Certified Radiologist. This report was verified electronically.
[2017-06-06] MEDS ORDERED: DO NOT ADM ANY ANTICOAGULANT DRUGS PRN (09:30)
[2017-06-06] MEDS ORDERED: SODIUM CHLOR 0.9% 1000 ML INJ 1,000 ML IV ONE (10:00)
[2017-06-06] MEDS ORDERED: 1/2 NS + KCL 20 MEQ INJ 1,000 ML IV SCH (10:15)
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
--- NOTE | 2017-06-06 17:42 | MG ---
cc: BENNIE MELO Lab No: [id number] Date: 06/06/17 Age: 82 Sex: M Race: TECHNIQUE 17 channel EEG. DESCRIPTION The background rhythm is generally slow in the theta and delta frequencies from 3-6 Hz, amplitude is 10 microvolts, fairly prominent muscle artifact is identified. There are no lateralizing features seen and no epileptiform discharges. INTERPRETATION Abnormal study. There is diffuse slowing consistent with a moderate to severe encephalopathy. MD KEILA Andrews/MAGDIEL /3:25 PM /5:32 PM
--- NOTE | 2017-06-06 18:53 | RADRPT ---
EXAM DATE/TIME: 06/06/2017 18:24 [facility] COMPARISON: No previous studies available for comparison. INDICATIONS : NG tube placement. MEDICAL HISTORY : None. SURGICAL HISTORY : None. ENCOUNTER: Initial ACUITY: 1 day PAIN SCORE: Non-responsive. LOCATION: Bilateral abdomen. FINDINGS: Examination of the abdomen demonstrates a normal bowel gas pattern. No free air is identified. No o rganomegaly is evident. Osseous structures are intact. Nasogastric tube tip is at the gastric outlet. CONCLUSION: The nasogastric tube is in the distal stomach or the first portion of the duodenum. Nonobstructive pa ttern. Javier Machado MD on June 06, 2017 at 18:51 Board Certified Radiologist. This report was verified electronically.
[2017-06-06] MEDS: DOCUSATE SODIUM 50 MG/SENNA 8.6 MG TAB PO SCH (21:00)
[2017-06-06] MEDS: 1/2 NS + KCL 20 MEQ INJ 1,000 ML IV SCH (22:18)
[2017-06-07] VITALS (20 sets, daily range): BP systolic 94–118; BP diastolic 52–60; PULSE 80–83; RESP 10–18; TEMP 97.3–98.6; O2SAT 96–100
[2017-06-07] MEDS ORDERED: SODIUM CHLOR 0.9% 1000 ML INJ 1,000 ML IV ONE (01:00)
[2017-06-07] MEDS ORDERED: ALBUMIN HUMAN 25% 25 GM/100 ML BAGP IV ONE (01:00)
[2017-06-07 01:08] LABS: APTT (PATIENT) 33.6 SEC (24.3-30.1); PROTHROMBIN TIME - PATIENT 11.4 SEC (9.8-11.6)
[2017-06-07 01:22] LABS: ALT (GPT) 7 U/L (12-78); ANION GAP 13 MEQ/L (5-15); AST (GOT) 13 U/L (15-37); BLOOD UREA NITROGEN 12 MG/DL (7-18); CHLORIDE 103 MEQ/L (98-107); GLOMERULAR FILTRATION RATE 115 ML/MIN (>89); MAGNESIUM 1.3 MG/DL (1.5-2.5); POTASSIUM 3.5 MEQ/L (3.5-5.1); SODIUM (NA) 137 MEQ/L (136-145)
[2017-06-07 01:24] LABS: ALKALINE PHOSPHATASE 58 U/L (45-117); TOTAL BILIRUBIN ADULT 0.5 MG/DL (0.2-1.0)
[2017-06-07] MEDS: RESP: ALBUTEROL 2.5 MG/IPRATROPIUM 0.5 MG NEB (SCH) INH ×4 (03:28→20:02)
--- NOTE | 2017-06-07 05:19 | RADRPT ---
EXAM DATE/TIME: 06/07/2017 04:02 [facility] COMPARISON: CHEST SINGLE AP, June 06, 2017, 0:44. INDICATIONS : Respiratory failure post Trauma- C2 fracture MEDICAL HISTORY : Dementia SURGICAL HISTORY : Pacemaker. Aortic valve replacement ENCOUNTER: Subsequent ACUITY: 2 days PAIN SCORE: Non-responsive. LOCATION: Bilateral chest FINDINGS: A single view of the chest demonstrates the lungs to be symmetrically aerated with stable interstitia l changes, most prominent in the bases and along the periphery. Endotracheal tube is unchanged in pos ition with a nasogastric tube traversing the GE junction and extending into the gastric lumen. Intact median sternotomy wires with findings of prior aortic valve prostheses. Left subclavian bipolar pace r/defibrillator remains intact. CONCLUSION: 1. Stable interstitial changes are most prominent in the periphery and bases suggesting a chronic pro cess. 2. Interval placement of a nasogastric tube which enters the stomach. Life support tubes are otherwis e stable in position. Sebastián Chin MD on June 07, 2017 at 5:16 Board Certified Radiologist. This report was verified electronically.
[2017-06-07] MEDS: ARTIFICIAL TEARS OPTH SOLN 15 ML BTL EACH EYE SCH ×3 (09:00→18:00)
[2017-06-07] MEDS: FAMOTIDINE 40 MG/5 ML LIQ 50 ML BTL NG SCH ×2 (09:00→21:00)
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
[2017-06-07] MEDS: DOCUSATE SODIUM 50 MG/SENNA 8.6 MG TAB PO SCH ×2 (09:52→21:32)
[2017-06-07] MEDS: SODIUM CHLORIDE 0.9% FLUSH 10 ML FLUSH IV FLUSH SCH ×2 (09:52→20:27)
[2017-06-07] MEDS: FAMOTIDINE 20 MG/2 ML VIAL IV PUSH SCH ×2 (09:52→21:33)
[2017-06-07] MEDS: CHLORHEXIDINE 0.12% (ORAL KIT) 15 ML CUP MT SCH ×2 (09:53→20:27)
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
[2017-06-07] MEDS: fentaNYL DRIP 250 ML IV PRN (16:05)
[2017-06-07] MEDS: PROPOFOL 1000 MG/100 ML INJ 100 ML IV PRN (16:32)
[2017-06-08] VITALS (19 sets, daily range): BP systolic 95–147; BP diastolic 50–70; PULSE 81–86; RESP 10–13; TEMP 98.5–99.8; O2SAT 97–100
[2017-06-08] MEDS: 1/2 NS + KCL 20 MEQ INJ 1,000 ML IV SCH ×4 (01:42→23:46)
[2017-06-08] MEDS: CHLORHEXIDINE GLUCONATE 2 % 1 PACK (2 CLOTHS) TOP SCH (03:26)
[2017-06-08] MEDS: RESP: ALBUTEROL 2.5 MG/IPRATROPIUM 0.5 MG NEB (SCH) INH ×4 (03:50→20:23)
[2017-06-08 04:04] LABS: PROTHROMBIN TIME - PATIENT 11.1 SEC (9.8-11.6)
[2017-06-08 04:26] LABS: ALT (GPT) 10 U/L (12-78); ANION GAP 8 MEQ/L (5-15); AST (GOT) 11 U/L (15-37); BICARBONATE 25.9 MEQ/L (21.0-32.0); BLOOD UREA NITROGEN 8 MG/DL (7-18); CHLORIDE 108 MEQ/L (98-107); GLOMERULAR FILTRATION RATE 131 ML/MIN (>89); POTASSIUM 3.3 MEQ/L (3.5-5.1); SODIUM (NA) 142 MEQ/L (136-145)
[2017-06-08 04:28] LABS: ALKALINE PHOSPHATASE 47 U/L (45-117); TOTAL BILIRUBIN ADULT 0.3 MG/DL (0.2-1.0)
[2017-06-08] MEDS: POTASSIUM CHLOR 20 MEQ PREMIX 100 ML IV PRN ×2 (04:36→07:00)
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
[2017-06-08] MEDS: FAMOTIDINE 20 MG/2 ML VIAL IV PUSH SCH ×2 (08:56→21:11)
[2017-06-08] MEDS: SODIUM CHLORIDE 0.9% FLUSH 10 ML FLUSH IV FLUSH SCH ×2 (08:57→19:57)
[2017-06-08] MEDS: DOCUSATE SODIUM 50 MG/SENNA 8.6 MG TAB PO SCH ×2 (08:57→21:11)
[2017-06-08] MEDS: ARTIFICIAL TEARS OPTH SOLN 15 ML BTL EACH EYE SCH ×3 (08:57→18:00)
[2017-06-08] MEDS: FAMOTIDINE 40 MG/5 ML LIQ 50 ML BTL NG SCH ×2 (08:57→21:00)
[2017-06-08] MEDS: CHLORHEXIDINE 0.12% (ORAL KIT) 15 ML CUP MT SCH ×2 (08:58→19:57)
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
[2017-06-08] MEDS: PROPOFOL 1000 MG/100 ML INJ 100 ML IV PRN ×2 (11:26→23:47)
[2017-06-08] MEDS: fentaNYL DRIP 250 ML IV PRN (11:26)
[2017-06-09] VITALS (19 sets, daily range): BP systolic 90–128; BP diastolic 53–59; PULSE 83–102; RESP 11–14; TEMP 99.3–101.2; O2SAT 90–100
[2017-06-09] MEDS: CHLORHEXIDINE GLUCONATE 2 % 1 PACK (2 CLOTHS) TOP SCH (00:31)
[2017-06-09] MEDS: RESP: ALBUTEROL 2.5 MG/IPRATROPIUM 0.5 MG NEB (SCH) INH ×4 (03:16→21:08)
[2017-06-09 06:30] LABS: PROTHROMBIN TIME - PATIENT 11.5 SEC (9.8-11.6)
[2017-06-09 06:53] LABS: BICARBONATE 23.9 MEQ/L (21.0-32.0)
[2017-06-09] MEDS: CHLORHEXIDINE 0.12% (ORAL KIT) 15 ML CUP MT SCH ×2 (08:00→20:00)
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
[2017-06-09] MEDS: PROPOFOL 1000 MG/100 ML INJ 100 ML IV PRN (08:26)
[2017-06-09] MEDS: FAMOTIDINE 40 MG/5 ML LIQ 50 ML BTL NG SCH ×2 (09:00→20:39)
[2017-06-09] MEDS: ARTIFICIAL TEARS OPTH SOLN 15 ML BTL EACH EYE SCH ×3 (09:38→18:00)
[2017-06-09] MEDS: DOCUSATE SODIUM 50 MG/SENNA 8.6 MG TAB PO SCH ×2 (09:38→20:38)
[2017-06-09] MEDS: FAMOTIDINE 20 MG/2 ML VIAL IV PUSH SCH ×2 (09:38→20:38)
[2017-06-09] MEDS: SODIUM CHLORIDE 0.9% FLUSH 10 ML FLUSH IV FLUSH SCH ×2 (09:38→20:38)
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
[2017-06-09] MEDS: 1/2 NS + KCL 20 MEQ INJ 1,000 ML IV SCH (09:39)
[2017-06-09] MEDS: ACETAMINOPHEN 325 MG TAB PO PRN (16:30)
[2017-06-09] MEDS: WARFARIN SOD 1 MG TAB PO SCH (16:30)
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
[2017-06-09] MEDS ORDERED: SODIUM CHLOR 0.9% 1000 ML INJ 1,000 ML IV ONE (17:45)
[2017-06-09] MEDS: fentaNYL DRIP 250 ML IV PRN (20:37)
[2017-06-10] VITALS (18 sets, daily range): BP systolic 102–152; BP diastolic 61–99; PULSE 66–87; RESP 12–19; TEMP 97.7–99; O2SAT 100
[2017-06-10] MEDS: 1/2 NS + KCL 20 MEQ INJ 1,000 ML IV SCH (03:30)
[2017-06-10] MEDS: PROPOFOL 1000 MG/100 ML INJ 100 ML IV PRN (03:31)
[2017-06-10] MEDS: CHLORHEXIDINE GLUCONATE 2 % 1 PACK (2 CLOTHS) TOP SCH (04:00)
[2017-06-10] MEDS: RESP: ALBUTEROL 2.5 MG/IPRATROPIUM 0.5 MG NEB (SCH) INH (04:12)
[2017-06-10 06:49] LABS: INTERNATIONAL NORMALIZED RATIO 1.1 RATIO; PROTHROMBIN TIME - PATIENT 12.1 SEC (9.8-11.6)
[2017-06-10] MEDS: CHLORHEXIDINE 0.12% (ORAL KIT) 15 ML CUP MT SCH ×2 (08:00→20:00)
[2017-06-10] MEDS: ARTIFICIAL TEARS OPTH SOLN 15 ML BTL EACH EYE SCH ×3 (08:34→18:00)
[2017-06-10] MEDS: DOCUSATE SODIUM 50 MG/SENNA 8.6 MG TAB PO SCH ×2 (08:35→20:55)
[2017-06-10] MEDS: FAMOTIDINE 40 MG/5 ML LIQ 50 ML BTL NG SCH ×2 (08:35→20:48)
[2017-06-10] MEDS: SODIUM CHLORIDE 0.9% FLUSH 10 ML FLUSH IV FLUSH SCH ×2 (08:35→20:55)
[2017-06-10] MEDS: FAMOTIDINE 20 MG/2 ML VIAL IV PUSH SCH ×2 (08:35→20:55)
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
[2017-06-10] MEDS ORDERED: MAGNESIUM HYDROXIDE SUSP 30 ML CUP PO ONE (10:00)
[2017-06-10] MEDS: DEXMEDETOMIDINE INJ 200 MCG in SODIUM CHLORIDE 0.9% INJ 50 ML IV PRN ×2 (10:21→16:14)
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
--- NOTE | 2017-06-10 15:11 | HHI.HCPN ---
Palliative care spoke with , February, via telephone. She confirms plan of care is to move Mr. Clemons to the [facility] sometime tomorrow (). She wishes for him to be transported on the ventilator with plan to withdrawal mechanical ventilation and transition to comfort measures only once settled in at the care center. Palliative to meet with her tomorrow (06/11/17) at 10am. Palliative care will continue to follow throughout hospitalization. Luli Harper, SENIOR PROCESS ANALYST Jun 10, 2017 15:11
[2017-06-10] MEDS: WARFARIN SOD 1 MG TAB PO SCH (16:14)
[2017-06-11] VITALS (11 sets, daily range): BP systolic 137–163; BP diastolic 87–109; PULSE 82–87; RESP 15–21; TEMP 97.5–97.7; O2SAT 100
[2017-06-11] MEDS: DEXMEDETOMIDINE INJ 200 MCG in SODIUM CHLORIDE 0.9% INJ 50 ML IV PRN ×2 (01:24→07:57)
[2017-06-11] MEDS: ENALAPRILAT 2.5 MG/2 ML VIAL IV PUSH PRN (02:41)
[2017-06-11] MEDS: CHLORHEXIDINE GLUCONATE 2 % 1 PACK (2 CLOTHS) TOP SCH (04:00)
[2017-06-11] MEDS: 1/2 NS + KCL 20 MEQ INJ 1,000 ML IV SCH (07:31)
[2017-06-11] MEDS: FAMOTIDINE 20 MG/2 ML VIAL IV PUSH SCH (07:56)
[2017-06-11] MEDS: ACETAMINOPHEN 325 MG TAB PO PRN (07:57)
[2017-06-11] MEDS: DOCUSATE SODIUM 50 MG/SENNA 8.6 MG TAB PO SCH (07:57)
[2017-06-11] MEDS: CHLORHEXIDINE 0.12% (ORAL KIT) 15 ML CUP MT SCH (08:00)
[2017-06-11] MEDS ORDERED: oxyCODONE/ACETAMINOPHEN 5 MG/325 MG TAB OG-TUBE PRN (08:30)
[2017-06-11] MEDS ORDERED: LABETALOL HCL 100 MG/20 ML VIAL IV PRN (08:30)
[2017-06-11] MEDS ORDERED: oxyCODONE/ACETAMINOPHEN 5 MG/325 MG TAB PO PRN (08:30)
[2017-06-11] MEDS: ARTIFICIAL TEARS OPTH SOLN 15 ML BTL EACH EYE SCH (09:00)
[2017-06-11] MEDS: FAMOTIDINE 40 MG/5 ML LIQ 50 ML BTL NG SCH (09:00)
[2017-06-11] MEDS: SODIUM CHLORIDE 0.9% FLUSH 10 ML FLUSH IV FLUSH SCH (09:00)
--- NOTE | 2017-06-11 10:56 | HHI.HCPN ---
Reason for visit a. To assist with evaluation and management of symptoms including: pain, debility, dyspnea. b. To assist medical decision maker(s) with: better understanding of current medical conditions; weighing benefits/burdens of medical treatment options; making medical treatment decisions. Subjective/Interval History Patient seen and examined in ICU. No family at bedside, apparently went to [facility] in [place]. Patient was medically extubated prior to my arrival. He is awake and alert. He has pain in throat and neck. He feels short of breath. He is unable to further qualify or quantify pain. Spoke with nurse, Dr. Ayala and nursing staff. Called to speak with , she is waiting for her to arrive at the [facility]. Her goals are comfort oriented, she wants NG tube stopped and comfort meds only. Discussed with hospice admission nurseLucy. . Family/friend interactions See interval note. . Advance Directives Living Will: Completed, but not made available Health Care Surrogate: Completed, but not made available Advance Directive Specifics Health Care Surrogate(s): Patient incapacitated to make his own health care decisions. According to [place] statutes, health care proxy decision-making falls to the patient's spouse. Requested copy of written advance directives. Family indicates he is legal health care surrogate. Significant change in goals: NO CODE. Goals are comfort oriented. Desires transfer to [facility] in [place]. . Objective Vital Signs Date Time Temp Pulse Resp B/P (MAP) Pulse Ox O2 Delivery O2 Flow Rate FiO2 06/11/17 10:04 100 Nasal Cannula 4.00 06/11/17 10:00 100 Nasal Cannula 4 06/11/17 09:13 100 Ventilator 35 06/11/17 08:37 100 35 06/11/17 08:36 35 06/11/17 08:00 97.7 84 21 163/109 (127) 100 06/11/17 08:00 35 06/11/17 08:00 84 06/11/17 06:00 83 06/11/17 04:38 100 30 06/11/17 04:00 35 06/11/17 04:00 97.5 84 15 156/92 (113) 100 06/11/17 04:00 84 06/11/17 02:00 87 06/11/17 00:39 100 35 06/11/17 00:00 97.7 82 16 137/87 (104) 100 06/11/17 00:00 35 06/11/17 00:00 82 06/10/17 22:00 84 06/10/17 20:48 100 30 06/10/17 20:00 97.7 85 15 152/99 (116) 100 06/10/17 20:00 35 06/10/17 20:00 85 06/10/17 18:00 83 06/10/17 16:02 100 35 06/10/17 16:00 83 06/10/17 16:00 97.9 83 19 152/95 (114) 100 06/10/17 16:00 35 06/10/17 14:00 82 06/10/17 12:49 100 35 06/10/17 12:49 35 06/10/17 12:00 99.0 85 13 109/63 (78) 100 06/10/17 12:00 35 06/10/17 12:00 85 Intake & Output 06/11/17 06/11/17 07:00 19:00 Intake Total 1134 ml Output Total 575 ml Balance 559 ml IV Total 1134 ml Output Urine Total 575 ml Physical Exam CONSTITUTIONAL/GENERAL: This is elderly, critically, chronically ill patient, weak voice post medical extubation. TUBES/LINES/DRAINS: NG, PIV right and left, bilateral soft wrist restraints, Childs catheter, SCD's. SKIN: cachectic. No jaundice, rashes, or lesions. Ecchymoses on upper extremities and face. Skin temperature appropriate. Not diaphoretic. NECK: Cervical collar in place. CARDIOVASCULAR: irregular with systolic murmur. RESPIRATORY/CHEST: Symmetric, unlabored respirations. Scattered course breath sounds. GASTROINTESTINAL: Abdomen scaphoid, hypoactive bowel sounds. GENITOURINARY: Without palpable bladder distension. Childs catheter in place. MUSCULOSKELETAL: Extremities without clubbing, cyanosis, or edema. Significant muscle wasting. NEUROLOGICAL: Awake, weak voice. Answers some simple questions. PSYCHIATRIC: Calm. . Diagnostic Tests Laboratory Laboratory Tests Test 06/09/17 06:05 06/10/17 04:31 06/11/17 04:17 Prothrombin Time 11.5 SEC (9.8-11.6) 12.1 SEC (9.8-11.6) 11.0 SEC (9.8-11.6) Prothromb Time International Ratio 1.0 RATIO 1.1 RATIO 1.0 RATIO Blood Urea Nitrogen 9 MG/DL (7-18) Creatinine 0.55 MG/DL (0.60-1.30) Random Glucose 157 MG/DL (74-106) Calcium Level 7.5 MG/DL (8.5-10.1) Sodium Level 137 MEQ/L (136-145) Potassium Level 4.0 MEQ/L (3.5-5.1) Chloride Level 106 MEQ/L (98-107) Carbon Dioxide Level 23.9 MEQ/L (21.0-32.0) Anion Gap 7 MEQ/L (5-15) Estimat Glomerular Filtration Rate 142 ML/MIN (>89) Result Diagram: 06/09/17 0605 Imaging Last Impressions Chest X-Ray 06/07/17 0000 Signed Impressions: Service Date/Time: Wednesday, June 07, 2017 04:02 - CONCLUSION: 1. Stable interstitial changes are most prominent in the periphery and bases suggesting a chronic process. 2. Interval placement of a nasogastric tube which enters the stomach. Life support tubes are otherwise stable in position. Sebastián Chin MD Head CT 06/06/17 0000 Signed Impressions: Service Date/Time: Tuesday, June 06, 2017 04:21 - CONCLUSION: 1. Stable cerebellar and cerebral atrophy with periventricular small vessel ischemic demyelination. 2. 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 3. Nothing acute. Sebastián Chin MD Abdomen X-Ray 06/06/17 0000 Signed Impressions: Service Date/Time: Tuesday, June 06, 2017 18:24 - CONCLUSION: The nasogastric tube is in the distal stomach or the first portion of the duodenum. Nonobstructive pattern. Javier Machado MD Cervical Spine X-Ray 06/05/17 0000 Signed Impressions: Service Date/Time: May 22:10 - CONCLUSION: Screw fixation of odontoid fracture without evidence of an acute complication. Javier Machado MD Cervical Spine CT 05/31/17 0000 Signed Impressions: Service Date/Time: Wednesday, May 31, 2017 11:38 - CONCLUSION: 1. There is a minimally displaced fracture through the base of the odontoid process at C2. Fracture ends are by approximately 2 mm anteriorly and the fracture does not clearly extend through the posterior cortex. 2. There is grade one anterolisthesis of C4 on C5 and C5 on C6 with multilevel degenerative disc disease. Javier Riley MD Procedures * 06/05/17 - intubated for surgery, extubated, reintubated in PACU * 06/05/17 - C-2 odontoid screw placement for C-2 type II fracture fixation with use of biplanar fluoroscopy intraoperative imaging for screw placement Assessment and Plan Disease Oriented Problem List: (1) C2 cervical fracture (2) Cognitive decline (3) Altered mental status (4) Fall (5) Atrial fibrillation (6) AICD (automatic cardioverter/defibrillator) present Symptom Scale: (1) Pain 0-10 Scale: Unable to quantify Comment: Fentanyl drip restarted 100 g (2) Debility 0-10 Scale: Unable to quantify Comment: Due to underlying comorbidities, advanced dementia (3) Dyspnea 0-10 Scale: Unable to quantify Comment: On mechanical ventilation, periods of apnea on CPAP (4) Confusion 0-10 Scale: Unable to quantify Comment: Due to underlying dementia. Pertinent Non-Medical Issues Psychosocial: . Was living at home with his prior to admission. Son Nakul here from out of state. Spiritual: Taoist malgorzata. Legal:Patient incapacitated to make his own health care decisions. According to [place] statutes, health care proxy decision-making falls to the patient's spouse. Requested copy of written advance directives. Family indicates he is legal health care surrogate. Ethical issues impacting care: no known concerns at this time. . Important Contacts * Charley Clemons, spouse/HCP: [phone] (home) or [phone] (cell) * Nakul Clemons, son Prognosis Mr. Clemons is an 82-year-old male with advanced dementia previously on hospice for the past 18 months, recently suffered a fall with C2 fracture status post surgery, now with difficulty weaning from mechanical ventilation. Overall prognosis poor for meaningful recovery giving advanced dementia, comorbidities and overall trajectory of decline eating up to this hospitalization. Hospice appropriate. . Code Status: No Code Plan * Decision Maker: Patient incapacitated to make his own health care decisions. According to [place] statutes, health care proxy decision-making falls to the patient's spouse. Requested copy of written advance directives. Family indicates he is legal health care surrogate. * NO CODE * Palliative care spoke with (February) via phone. She is at [facility] waiting for her to arrive. She desires NG tube removal and comfort meds. Plan for DC to Hospice care center when arrangements made. * Discussed with Dr. Ayala and nursing staff. * SYMPTOMS: Pain: due to general debility, recent fall, surgery and bedbound status. Family indicates patient would not want prolonged mechanical ventilation. * Palliative care will continue to follow throughout hospital course to assist with symptom management and clarification of goals as needed. . Attestation To help prompt me to consider important information that might be impacting today's encounter and assessment, information from prior notes written by myself or my colleagues may have been "brought forward" into today's note. My signature on this note, however, is an attestation that I personally performed the exam, history, and/or decision-making noted today, and, unless otherwise indicated, the interactions with patient, family, and staff as well as the review of records all occurred today. I also attest that the listed assessment and stated plan reflect my best clinical judgment today based on the combination of historical information, prior notes, and today's exam/ interactions. When time spent is documented, it refers only to time spent today by the signer, or if indicated, combined time spent today by collaborating physician/nurse practitioner. Evy Ball Jun 11, 2017 10:56
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
[2017-06-11] MEDS ORDERED: MAGNESIUM HYDROXIDE SUSP 30 ML CUP PO PRN (18:00)
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
== END 2017-06-11 12:54 | disposition hospice, inpatient (51) | DRG 518 ==
LOC: NEPE 10:15 → NEDA 14:01 → N05A 15:38 → N03B 06-06 03:35
PROVIDERS: ADMIT Internal Medicine Critical Care Medicine; ATTEND Internal Medicine Critical Care Medicine
PROC: 0T9B70Z Drainage of Bladder with Drainage Device, Via Natural or Artificial Opening (ICD-10-PCS; 2017-06-05)
PROC: 5A1955Z Respiratory Ventilation, Greater than 96 Consecutive Hours (ICD-10-PCS; 2017-06-05)
PROC: 0PS304Z Reposition Cervical Vertebra with Internal Fixation Device, Open Approach (ICD-10-PCS; principal; 2017-06-05 19:08)
DX: S12.110A Anterior displaced Type II dens fracture, initial encounter for closed fracture (principal); J95.821 Acute postprocedural respiratory failure; E43 Unspecified severe protein-calorie malnutrition; E87.2 Acidosis; G93.40 Encephalopathy, unspecified; G30.9 Alzheimer's disease, unspecified; F02.80 Dementia in other diseases classified elsewhere, unspecified severity, without behavioral disturbance, psychotic disturbance, mood disturbance, and anxiety; R64 Cachexia; G40.909 Epilepsy, unspecified, not intractable, without status epilepticus; I48.2 Chronic atrial fibrillation; E86.0 Dehydration; Z95.1 Presence of aortocoronary bypass graft; I10 Essential (primary) hypertension; F32.9 Major depressive disorder, single episode, unspecified; R62.7 Adult failure to thrive; W05.0XXA Fall from non-moving wheelchair, initial encounter; Y93.9 Activity, unspecified; Y92.129 Unspecified place in nursing home as the place of occurrence of the external cause; Z79.01 Long term (current) use of anticoagulants; M19.90 Unspecified osteoarthritis, unspecified site; Z86.73 Personal history of transient ischemic attack (TIA), and cerebral infarction without residual deficits; I25.10 Atherosclerotic heart disease of native coronary artery without angina pectoris; Z95.5 Presence of coronary angioplasty implant and graft; I25.2 Old myocardial infarction; Z87.891 Personal history of nicotine dependence; Z95.2 Presence of prosthetic heart valve; Z95.810 Presence of automatic (implantable) cardiac defibrillator; Z82.49 Family history of ischemic heart disease and other diseases of the circulatory system; M62.50 Muscle wasting and atrophy, not elsewhere classified, unspecified site; E78.00 Pure hypercholesterolemia, unspecified; M43.12 Spondylolisthesis, cervical region; F41.9 Anxiety disorder, unspecified; Z66 Do not resuscitate; E87.6 Hypokalemia; N40.0 Benign prostatic hyperplasia without lower urinary tract symptoms; K59.00 Constipation, unspecified; Z51.5 Encounter for palliative care; S00.83XA Contusion of other part of head, initial encounter
CPT/HCPCS: 70450; 71010; 72020; 72040; 72125; 74000; 76000; 76937; 80048; 80053; 82805; 82948; 83605; 83735; 84100; 85025; 85027; 85610; 85730; 87493; 87641; 93005; 94002; 94003; 94640; 94664; 95819; 99285; C1713; J0131; J0690; J1100; J1580; J2250; J2370; J2405; J3010; J3480; J7030; J7120; L0150; L0172; P9047